=== PATIENT | female | born 1965 ===

== ENCOUNTER 2024-11-07 10:15 | Outpatient (CLI) | payer BC, SELFPAY ==
--- NOTE | ~2024-11-07 | XR_ITS ---
Right Knee Technique: AP, lateral, and sunrise views were obtained. Clinical History: Pain Findings: No fracture or dislocation is seen. Osseous alignment is anatomic. Joint spaces are preserv ed without degenerative or erosive change. Chondrocalcinosis of menisci noted. No joint effusion is s een. Impression: No acute abnormality. Chondrocalcinosis of the menisci. Reviewed, dictated and finalized at location M. [employer] Impression: No acute abnormality. Chondrocalcinosis of the menisci.
== END 2024-11-07 10:16 | disposition home or self-care (01) ==
DX: M25.561 Pain in right knee (principal)
CPT/HCPCS: 73562